=== PATIENT | male | born 1975 | race Caucasian/White ===

== ENCOUNTER → 2019-01-22 | Outpatient (CLI) | payer OTHER ==
--- NOTE | 2019-01-22 13:34 | HPN ---
Date/Time of Note Date/Time of Note DATE: 01/22/19 TIME: 13:34 Interval H&P Admission Note Pt. seen H&P reviewed: No system changes KENN VILLANUEVA MD January 22, 2019 13:34
--- NOTE | 2019-01-22 13:40 | OPR ---
Date/Time of Note Date/Time of Note DATE: 01/22/19 TIME: 13:34 Operative Report Procedure Date: January 22, 2019 Preoperative Diagnosis Morbid obesity with history of LAP-BAND. Last adjustment was 2007 Postoperative Diagnosis Morbid obesity with history of LAP-BAND. Last adjustment was 2007. Band empty Operation/Procedure Performed 1. LAP-BAND adjustment with x-ray guidance, 6 mL instilled Surgeon Kenn Villanueva MD Plate Washer Radiologist Anesthesia Type: other (None) Estimated Blood Loss: none Transfusion none Specimen None Grafts/Implants none Tubes/Drains None Complications none Pt Condition Post Procedure: stable Disposition: home Indications Patient had a lap band placed many years ago. His last adjustment was 2007. He has not lost any weight. He is here for band adjustment with x-ray guidance since he was unable to easily access the port in the office. Risks include but are not limited to bleeding, infection, abscess, seroma, leak, damage to intestines or any intra-abdominal/intrapelvic structures, hernia formation, chronic pain, need for re-operations or further surgeries, HI, stroke, PE, DVT, pneumonia, organ failures, or even . Procedure Description Patient was placed on the x-ray table. Timeout was done. He was prepped and draped sterilely. X-ray was used to identify the port site. The needle was placed and after multiple attempts inserted into the port. Aspiration identified less than cc of saline. Concern was for possible leak from the port of the tubing. Contrast was injected into the port however no leakage was identified. This was aspirated and saline was placed. Total of 6 mL's was placed by the end of the procedure. Under x-ray guidance patient drank contrast and there was flow of contrast through the port into the stomach which slowed down by the 6 mL. He continued to feel fine however he did feel slowing. Patient was able to tolerate liquids without difficulty. At this point decision was made to leave a measures and follow-up as outpatient. Needle was removed and Band-Aid was placed. There was no bleeding. Patient tolerated procedure well. KENN VILLANUEVA MD January 22, 2019 13:40
== END | disposition home or self-care (01) ==
LOC: U/S 11:15 → EDSEX 12:00
PROVIDERS: ATTEND Surgery
DX: E66.01 Morbid (severe) obesity due to excess calories (principal); Z98.84 Bariatric surgery status
CPT/HCPCS: 75984